=== PATIENT | male | born 1970 | race Caucasian/White ===

== ENCOUNTER → 2017-08-10 | Outpatient (CLI) | payer OTHER ==
--- NOTE | 2017-08-10 14:16 | CT ---
EXAMINATION TYPE: CT abdomen wo con DATE OF EXAM: 08/10/2017 COMPARISON: NONE HISTORY: Patient complains of LUQ pain. CT DLP: 695 mGycm Automated exposure control for dose reduction was used. TECHNIQUE: Helical acquisition of images was performed from the lung bases through the top of iliac crest to include entire abdomen. CONTRAST: Performed with Oral Contrast and without IV contrast. FINDINGS: LUNG BASES: Subsegmental changes at the lung bases suggestive of atelectasis. LIVER/GB: No significant abnormality is appreciated. PANCREAS: No significant abnormality is seen. SPLEEN: No significant abnormality is seen. ADRENALS: Slight nodular thickening left adrenal glands 2 small to characterize and nonspecific. KIDNEYS: No hydronephrosis or nephrolithiasis. 1.2 cm low-density left parapelvic structure measuring 2 Hounsfield units suggestive of simple parape lvic renal cyst. BOWEL: No significant abnormality is seen. LYMPH NODES: No significant abnormality is appreciated. OSSEOUS STRUCTURES: Hypertrophic and degenerative change of the spine noted. OTHER: Small fat-containing. IMPRESSION: 1. Less than 1 cm nodularity left adrenal gland is too small to characterize. 2. Fat-containing periumbilical hernia. 3. Left parapelvic simple appearing renal cyst. 4 few prominent small bowel loops are seen in the lef t upper quadrant with no definite transition. Correlate clinically. No inflammatory changes identifie d.
== END | disposition home or self-care (01) ==
LOC: RADCTMAIN 13:00
PROVIDERS: ATTEND Family Medicine
DX: N28.1 Cyst of kidney, acquired (principal); K42.9 Umbilical hernia without obstruction or gangrene
CPT/HCPCS: 74150

== ENCOUNTER 2017-08-26 08:05 | Day surgery (SDC) | payer OTHER ==
[2017-08-24 13:52] VITALS: BMI 30.2
[~2017-08-26 08:05] MED LIST: LACTATED RINGERS 1,000 ML IV SCH
[2017-08-26 08:18] VITALS: TEMP 97.1
[2017-08-26] MEDS ORDERED: LIDOCAINE 1% 20 ML VIAL (10MG/ML) FOR IV START INTRADERMA ONE (08:26)
[2017-08-26] MEDS ORDERED: LIDOCAINE 1% INJ 10MG/ML (20 ML MDV) ONE (08:55)
[2017-08-26] MEDS ORDERED: PROPOFOL 10 MG/ML 20 ML VIAL IV ONE (08:55)
--- NOTE | 2017-08-26 09:02 | P.GSHP ---
History of Present Illness H&P Date: 08/26/17 Chief Complaint: Left-sided abdominal pain, screening colonoscopy Is a 47-year-old male referred from Dr. Sacha Doss. Patient rents today for colonoscopy. He's had left-sided abdominal pain. Past Medical History Additional Past Medical History / Comment(s): hx migraines, abdominal left side discomfort and soft stool, History of Any Multi-Drug Resistant Organisms: None Reported Additional Past Surgical History / Comment(s): oral surgery Past Anesthesia/Blood Transfusion Reactions: No Reported Reaction Smoking Status: Current every day smoker - Past Family History Mother Family Medical History: No Reported History Medications and Allergies Home Medications Medication Instructions Recorded Confirmed Type Aspirin 325 mg PO DAILY PRN 08/24/17 08/26/17 History Allergies Allergy/AdvReac Type Severity Reaction Status Date / Time No Known Allergies Allergy Verified 08/26/17 08:15 Surgical - Exam Vital Signs Temp Pulse Resp BP Pulse Ox 97.1 F L 103 H 16 171/105 97 08/26/17 08:17 08/26/17 08:17 08/26/17 08:17 08/26/17 08:17 08/26/17 08:17 - General well developed, no distress - Eyes PERRL - ENT normal pinna - Neck no masses - Respiratory normal expansion - Cardiovascular Rhythm: regular - Abdomen Left-sided abdominal pain Abdomen: soft Assessment and Plan Plan: Left sided Abdominal pain. We'll perform screening colonoscopy
--- NOTE | 2017-08-26 09:16 | P.OP ---
Date of Procedure: 08/26/17 Preoperative Diagnosis: Left lower quadrant pain Screening colonoscopy Postoperative Diagnosis: Normal colonoscopy Procedure(s) Performed: Colonoscopy Anesthesia: MAC Surgeon: Saji Patel Pathology: none sent Condition: stable Disposition: PACU Description of Procedure: PROCEDURE: The patient was placed on the endoscopy table in the lateral position. Digital rectal examination was performed which revealed no abnormalities. The prostate was symmetrical without nodules. Flexible colonoscope was then placed in the patient's anus and passed throughout the entire colon. The ileocecal valve was visualized. The cecum, ascending, transverse, descending and sigmoid colon were normal. The rectum was normal as well. There were no masses, polyps or diverticula noted in the entire colon. SUMMARY OF FINDINGS: Normal colonoscopy.
[2017-08-26 09:50] VITALS: BP 157/95; PULSE 75; RESP 18
== END 2017-08-26 09:56 | disposition home or self-care (01) ==
LOC: ORWHC2ENDO 08:05
PROVIDERS: ATTEND Surgery
DX: R10.32 Left lower quadrant pain (principal); R19.5 Other fecal abnormalities; F17.200 Nicotine dependence, unspecified, uncomplicated; Z79.82 Long term (current) use of aspirin; Z79.899 Other long term (current) drug therapy
CPT/HCPCS: 45378; J2001; J2704

== ENCOUNTER → 2020-08-27 | Outpatient (CLI) | payer OTHER ==
--- NOTE | 2020-08-27 14:20 | XR ---
EXAMINATION TYPE: XR Hip Bilateral Complete DATE OF EXAM: 08/27/2020 CLINICAL HISTORY: Bilateral hip pain TECHNIQUE: AP and frogleg views of the bilateral hips are obtained. COMPARISON: None. FINDINGS: There is no acute fracture/dislocation evident in either hip. Overlying soft tissue unrema rkable bilaterally. Severe superior joint space loss left hip with moderate to severe head and neck collar spurring and m ild to moderate acetabular spurring. Right hip shows moderate axial joint space loss and moderate head neck collar spurring with mild/mode rate acetabular spurring. IMPRESSION: As above. Asymmetric advanced degenerative change left hip joint noted.
--- NOTE | 2020-08-27 14:21 | XR ---
EXAMINATION TYPE: XR abdomen 1V DATE OF EXAM: 08/27/2020 2:12 PM CLINICAL HISTORY: Abdominal pain. TECHNIQUE: Two Upright KUB images of the abdomen are obtained. COMPARISON: CT abdomen August 10, 2017. FINDINGS: Scattered gas is seen in non-distended stomach and small bowel loops. Gas and fecal materia l is seen in non-distended colon. There is no visceromegaly, pneumoperitoneum, or abnormal calcificat ion appreciated. The lung bases are clear and the osseous structures are intact. IMPRESSION: Overall nonobstructive bowel gas pattern redemonstrated.
== END | disposition home or self-care (01) ==
LOC: RADXRMAIN 13:45
PROVIDERS: ATTEND Family Medicine
DX: M16.12 Unilateral primary osteoarthritis, left hip (principal); M25.851 Other specified joint disorders, right hip; M25.852 Other specified joint disorders, left hip; M25.761 Osteophyte, right knee; R14.0 Abdominal distension (gaseous)
CPT/HCPCS: 73521; 74018

== ENCOUNTER → 2021-10-30 | Outpatient (CLI) | payer OTHER ==
--- NOTE | 2021-10-30 11:45 | XR ---
EXAMINATION TYPE: XR chest 2V DATE OF EXAM: 10/30/2021 COMPARISON: NONE HISTORY: Shortness of breath TECHNIQUE: Frontal and lateral views of the chest are obtained. FINDINGS: Scattered senescent parenchymal changes noted. Hyperinflation compatible with COPD. No evidence for infiltrate. No evidence for atelectasis. Heart size is stable. Mediastinal structures are stable and grossly unremarkable. No evidence for hilar prominence. Degenerative changes dorsal spine. IMPRESSION: 1. No evidence for acute pulmonary disease.
== END | disposition home or self-care (01) ==
LOC: RADXRMAIN 11:21
PROVIDERS: ATTEND Family Medicine
DX: Z00.00 Encounter for general adult medical examination without abnormal findings (principal); I10 Essential (primary) hypertension; R06.02 Shortness of breath
CPT/HCPCS: 71046

== ENCOUNTER → 2023-11-04 | Outpatient (CLI) | payer OTHER ==
--- NOTE | 2023-11-04 13:38 | US ---
EXAMINATION TYPE: US venous doppler duplex LE DATE OF EXAM: 11/04/2023 1:23 PM COMPARISON: NONE CLINICAL INDICATION: Male, 53 years old with history of [id number] VN UNSP LOWER EXTREMITY WITH O THER; Varicose veins. Area of leg "stiffness". SIDE PERFORMED: Bilateral TECHNIQUE: The lower extremity deep venous system is examined utilizing real time linear array sonog cat with graded compression, doppler sonography and color-flow sonography. VESSELS IMAGED: Common Femoral Vein Deep Femoral Vein Greater Saphenous Vein * Femoral Vein Popliteal Vein Small Saphenous Vein * Proximal Calf Veins (* superficial vessels) Right Leg: Negative for DVT. There is a complex area on the superficial, medial right calf. Left Leg: Negative for DVT IMPRESSION: Grayscale, color doppler, spectral doppler imaging performed of the deep veins of the lo wer extremities. There is normal flow, compressibility, vascular waveforms.
== END | disposition home or self-care (01) ==
LOC: RADUSWWP 12:34
PROVIDERS: ATTEND Family Medicine
DX: I83.899 Varicose veins of unspecified lower extremity with other complications (principal)
CPT/HCPCS: 93970

== ENCOUNTER → 2024-01-17 | Outpatient (CLI) | payer OTHER ==
--- NOTE | 2024-01-17 12:50 | XR ---
EXAMINATION TYPE: XR chest 2V DATE OF EXAM: 01/17/2024 COMPARISON: 10/30/2021 INDICATION: Personal history nicotine dependence TECHNIQUE: Frontal and lateral views of the chest are obtained. FINDINGS: The heart size is normal. The pulmonary vasculature is normal. The lungs are clear. IMPRESSION: 1. No acute pulmonary process. 2. Evaluate for criteria for low dose screening CT chest.
== END | disposition home or self-care (01) ==
LOC: RADXRMAIN 12:21
PROVIDERS: ATTEND Family Medicine
DX: Z87.891 Personal history of nicotine dependence (principal)
CPT/HCPCS: 71046